=== PATIENT | male | born 1995 | race Hispanic/Latino ===

== ENCOUNTER 2025-05-03 10:18 | Emergency (ER) | payer OTHER ==
[~2025-05-03] VITALS: Ht 175.3 cm; Wt 87.1 kg
--- NOTE | 2025-05-03 10:26 | ERN ---
ED Note History of Present Illness Stated Complaint: 3 Chief Complaint: Allergic Reaction Time Seen by MD: 10:21 Dictation: PATIENT IS A 29-YEAR-OLD HERE WITH COMPLAINTS OF HAVING AN ALLERGIC REACTION SECONDARY TO WASP STINGS TO THE FACE 2 HOURS PRIOR TO ARRIVAL. HE STATES HE FELT HIS THROAT MILDLY CLOSED NO SHORTNESS A BREATH NO URTICARIA. MILD ANGIOEDEMA NOTED TO THE LIPS., VOICE IS CLEAR. BILATERAL BREATH SOUNDS CLEAR Allergies: Coded Allergies: beeswax (Unverified Allergy, Unknown, 05/03/25) Uncoded Allergies: WASPS (Allergy, Unknown, 05/03/25) Past Medical History Past Medical History: Anxiety, Depression, Hypertension Additional Past Medical Hx: ptsd, back pain, Surgical History: Appendectomy, Other Surgical History Other: dental. radha NG Note Reviewed/Agreed w/PFSH: Yes Review of System Dictation CONSTITUTIONAL: NEGATIVE EXCEPT FOR HPI HEAD/FACE: NEGATIVE EXCEPT FOR HPI EENT: NEGATIVE EXCEPT FOR HPI THROAT TIGHTENING/ANGIOEDEMA LIPS RESPIRATORY: NEGATIVE EXCEPT FOR HPI GASTROINTESTINAL/ABDOMINAL: NEGATIVE EXCEPT FOR HPI GENITOURINARY: NEGATIVE EXCEPT FOR HPI MUSCULOSKELETAL: NEGATIVE EXCEPT FOR HPI INTEGUMENTARY: NEGATIVE EXCEPT FOR HPI NEUROLOGICAL/PSYCH: NEGATIVE EXCEPT FOR HPI HEMATOLOGIC/LYMPHATIC: NEGATIVE EXCEPT FOR HPI ALL SYSTEMS NEGATIVE, EXCEPT NOTED ABOVE. 13 POINT REVIEW OF SYSTEMS ASSESSED AND ALL NEGATIVE EXCEPT FOR ABOVE. Initial Vital Sign VS Vital Signs Date Time Temp Pulse Resp B/P (MAP) Pulse Ox O2 Delivery O2 Flow Rate FiO2 05/03/25 10:20 97.5 88 16 135/85 97 Room Air 0 05/03/25 10:23 21 Physical Exam Dictation VITAL SIGNS REVIEWED GENERAL APPEARANCE: ALERT, ORIENTED X 3, MILD ACUTE DISTRESS, WELL DEVELOPED, NOURISHED. HEAD AND FACE: NON-TRAUMATIC. EYES: PERRL, PINK CONJUNCTIVAS, EYELID NO TRAUMA, ANTERIOR CHAMBER WITH ARCUS SENILIS. EARS: PINNAS INTACT AND NO SIGNS OF TRAUMA OR ERYTHEMA EAR CANALS CLEAR AND NO DISCHARGE TM NO ERYTHEMA NOSE: NO DISCHARGE, NO BLEEDING. OROPHARYNX: MOUTH NORMAL, TONGUE PINK, ANGIOEDEMA LIPS, VOICE IS CLEAR NO STRIDOR PHARYNX CLEAR,NO ERYTHEMA, TONSILS NO EXUDATES, NO ABSCESSES NOTED, MUCOUS MEMBRANE MOIST NECK: SUPPLE, NON-TENDER, NO THYROMEGALY, NO MASSES, NO JVD, NO BRUITS BREAST:DEFERRED CHEST:NO TENDERNESS, NO CREPITUS, NO PARADOXICAL MOVEMENT, NO RETRACTIONS LUNGS:CLEAR, WELL-VENTILATED, SYMMETRIC, NO RALES, NO WHEEZING, NO RHONCHI, NO STRIDOR, GOOD BREATH SOUNDS BILATERALLY HEART: REGULAR RATE, REGULAR RHYTHM, NO MURMUR, NO GALLOPS VASCULAR: NO PERIPHERAL EDEMA, ABDOMEN: SOFT, POSITIVE BOWEL SOUNDS, NONDISTENDED, NO GUARDING, NONTENDER, NO REBOUND, NO MASSES NO HEPATOMEGALY, NO SPLENOMEGALY, NO TAPIA'S SIGN, NO HERNIAS. RECTAL: DEFERRED GENITAL: DEFERRED NEUROLOGICAL: NORMAL SPEECH, MOTOR FUNCTION INTACT, SENSORY FUNCTION INTACT MUSCULOSKELETAL: NECK NONTENDER, FULL RANGE OF MOTION, BACK NONTENDER, FULL RANGE OF MOTION, EXTREMITIES: NONTENDER, FULL RANGE OF MOTION SKIN: COLOR PINK, DRY, SKIN IS FLUSHED NO URTICARIA LYMPHATIC: DEFERRED Results (Laboratory/Radiology) Labs Reviewed?: Yes ED Course ED Course Orders Procedure Category Date Status Time Diphenhydramine Hcl PHA 05/03/25 Complete (Benadryl Inj) 10:30 Dexamethasone 4mg/Ml PHA 05/03/25 Complete 1ml Vial (Dexametha 10:30 Famotidine 20mg Tab PHA 05/03/25 Complete (Pepcid 20mg Tab) 10:30 Current Medications Medications (Trade) Dose Ordered Sig/Guicho Route PRN Reason Start Time Stop Time Status Last Admin Dose Admin Dexamethasone Sodium Phosphate (dexaMETHasone 4MG/ML 1ML VIAL) 8 mg ONCE ONCE IM 05/03/25 10:30 05/03/25 10:31 DC 05/03/25 10:43 Diphenhydramine HCl (BENAdryl INJ) 50 mg ONCE ONCE IM 05/03/25 10:30 05/03/25 10:31 DC 05/03/25 10:43 Famotidine (Pepcid 20mg Tab) 40 mg ONCE ONCE PO 05/03/25 10:30 05/03/25 10:31 DC 05/03/25 10:43 Vital Signs Date Time Temp Pulse Resp B/P (MAP) Pulse Ox O2 Delivery O2 Flow Rate FiO2 05/03/25 10:23 97.5 88 16 135/85 97 Room Air* 0 21 05/03/25 10:20 97.5 88 16 135/85 97 Room Air 0 1058/PATIENT VOICE IS CLEAR BILATERAL BREATH SOUNDS ARE CLEAR SKIN IS NO LONGER FLUSH. PATIENT STATES HE FEELS BETTER. HE WILL BE DISCHARGED HOME WITH BENADRYL AND PREDNISONE TOLD FOLLOW UP WITH HIS DOCTOR [facility] Medical Decision Making MDM MEDICAL DISCHARGE MAKING BASED ON EMPIRIC TREATMENT FOR AN ACUTE ALLERGIC REACTION AN ANAPHYLACTOID PATIENT RECEIVED BENADRYL/PEPCID/DECADRON MARKEDLY IMPROVED AFTER TREATMENT DISCHARGED HOME WITH BENADRYL AND PREDNISONE TOLD SEE HIS PRIMARY CARE DOCTOR MONDAY OR RETURN IF CONDITION GOT WORSE DX & DISP Disposition: Discharge Departure Impression: Primary Impression: Wasp sting-induced anaphylaxis Condition: Stable Scripts Prednisone (Prednisone) 20 Mg Tablet 1 TAB PO AD for 6 Days, #14 TAB 0 Refills TAKE 1 TAB BY MOUTH THREE TIMES PER DAY X3 DAYS, THEN TAKE 1 TAB BY MOUTH TWICE A DAY X2 DAYS, THEN TAKE 1 TAB BY MOUTH ONCE A DAY X1 DAY. TAKE WITH FOOD Prov: JOYCE STEVENSON NP 05/03/25 Diphenhydramine HCl (Benadryl) 50 Mg Cap 50 MG PO Q6H for itching/rash, #20 CAP 0 Refills Prov: JOYCE STEVENSON NP 05/03/25 Additional Instructions: FOLLOW-UP WITH PRIMARY CARE PROVIDER IN 1 TO 2 DAYS. TAKE MEDICATIONS DIRECTED HERE IN THE EMERGENCY ROOM. OKAY TO CONTINUE HOME MEDICATIONS UNLESS OTHERWISE DISCUSSED DURING YOUR VISIT IN THE EMERGENCY ROOM TODAY. RETURN TO YOUR NEAREST EMERGENCY ROOM IF SYMPTOMS WORSEN OR IF THERE IS NO IMPROVEMENT. CALL 911 IF YOU NEED IMMEDIATE ASSISTANCE. TAKE TYLENOL OR MOTRIN [id number] NEEDED AND IF NO CONTRAINDICATIONS ARE PRESENT. INCREASE ORAL HYDRATION. A WOUND CULTURE OR URINE CULTURE WAS ORDERED HERE IN THE EMERGENCY ROOM DEPARTMENT PLEASE FOLLOW-UP WITH PRIMARY CARE PROVIDER AND ADVISE THEM TO GET REPEAT PORTS FROM OUR FACILITY. IF YOU HAD ANY PRATEEK WRAP/SPLINTS THAT WERE APPLIED HERE, PLEASE DO NOT REMOVE THEM UNTIL YOU SEE YOUR PRIMARY CARE OR SPECIALTY. TAKE BENADRYL EVERY 6 HOURS FOR THREE MORE DOSES. TAKE PREDNISONE DIRECTED UNTIL GONE WITH FOOD. SEE YOUR PRIMARY CARE DOCTOR AT [facility] ON MONDAY WITHOUT FAIL FOLLOW BACK UP WITH THE EMERGENCY ROOM IF ANY TROUBLE SWALLOWING SHORTNESS A BREATH OR FACIAL SWELLING Referrals: SELF,REFERRAL (PCP) Time of Disposition: 11:01 I have reviewed the case, and I agree with, Diagnosis and Plan JOYCE STEVENSON NP May 03, 2025 10:26
[2025-05-03] MEDS: FAMOTIDINE 20MG TAB PO ONE (10:43)
[2025-05-03] MEDS ORDERED: PRED20TA3 PO (11:03)
[2025-05-03] MEDS ORDERED: DIPH50 PO (11:03)
[2025-05-03 11:06] VITALS: BP 123/82; PULSE 80; RESP 16; TEMP 97.5; O2SAT 97
== END 2025-05-03 11:17 | disposition home or self-care (01) ==
LOC: EDH 10:18
DX: T63.461A Toxic effect of venom of wasps, accidental (unintentional), initial encounter (principal); T78.2XXA Anaphylactic shock, unspecified, initial encounter; I10 Essential (primary) hypertension; Z90.49 Acquired absence of other specified parts of digestive tract; Z91.030 Bee allergy status; X58.XXXA Exposure to other specified factors, initial encounter
CPT/HCPCS: 99284; 96372 ×2; J1100; J1200